=== PATIENT | female | born 1960 | race Caucasian/White ===

== ENCOUNTER 2019-10-09 11:12 | Emergency (ER) | payer BC ==
[2019-10-09] MEDS ORDERED: TETANUS,DIPHTHERIA,PERTUSSIS 1 EA SYG IM ONE (11:27)
--- NOTE | 2019-10-09 11:30 | ED.PDOC ---
History of Present Illness - General Chief Complaint: Laceration Stated Complaint: puncture wound Time Seen by Provider: 10/09/19 11:27 Source: patient, RN notes reviewed, Vital Signs reviewed Exam Limitations: no limitations - History of Present Illness Initial Comments: Patient is a 59-year-old white female who presents with complaints of left wrist bleeding. She apparently hit her medial left wrist on a nail when she was out mowing and it bled. She immediately wrapped it and came in here. On evaluation patient's wrist has a small puncture wound and no other surrounding irritation or bleeding. Patient denies any pain at this time. Patient's tetanus is not up-to-date. Patient denies any other symptoms. Occurred: just prior to arrival Severity: mild Pain Location: upper extremity - Left medial wrist Method of Injury: direct blow Improving Factors: nothing Worsening Factors: nothing Associated Symptoms (Fall): denies symptoms Allergies/Adverse Reactions: Allergies Aspirin Allergy (Verified 10/09/19 11:26) Troleandomycin [From Justin] Allergy (Verified 10/09/19 11:26) Home Medications: Ambulatory Orders Citalopram Hydrobromide [CeleXA] 20 mg PO BEDTIME 10/09/19 Review of Systems - Review of Systems Constitutional: States: no symptoms reported EENTM: States: no symptoms reported Respiratory: States: no symptoms reported Cardiology: States: no symptoms reported Gastrointestinal/Abdominal: States: no symptoms reported Genitourinary: States: no symptoms reported Musculoskeletal: States: no symptoms reported Skin: States: other - Puncture wound left medial wrist Neurological: States: no symptoms reported Endocrine: States: no symptoms reported Hematologic/Lymphatic: States: no symptoms reported All other Systems: Reviewed and Negative Past Medical History (General) - Patient Medical History Hx Stroke: No Hx Congestive Heart Failure: No Hx Diabetes: No Surgical History: Hysterectomy - Vaccination History Hx Tetanus, Diphtheria Vaccination: - unknown Hx Influenza Vaccination: Yes - Social History Hx Tobacco Use: Yes Family Medical History - Family History Mother Family History: Unknown Living Status: Unknown Physical Exam - Physical Exam General Appearance: Alert, Comfortable, Well Developed, Well Groomed, Well Hydrated, Well Nourished Head Injury: no evidence of injury Eye Exam: bilateral normal Neck Exam: full range of motion, normal alignment, normal inspection Extremity Exam: normal range of motion, other - Small puncture wound on the left medial wrist. Minimal tenderness to palpation. No bleeding at this time. No sign of infection or foreign body. Wound was washed out by nursing. 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 10/09/19 11:30 Patient's wound is not bleeding. She is not up-to-date on her tetanus shot and therefore she has decided to stay for a tetanus booster. Boostrix ordered for patient. She tolerated the vaccination without incident. Suraj Lawton M.D. #[id number] Departure - Departure Clinical Impression: Tetanus toxoid vaccination status unknown Puncture wound of wrist without foreign body Qualifiers: Encounter type: initial encounter Laterality: left Qualified Code(s): S61.532A - Puncture wound without foreign body of left wrist, initial encounter Time of Disposition: 11:32 Disposition: Discharge to Home or Self Care Condition: Excellent Departure Forms: ED Discharge - Pt. Copy, Patient Portal Self Enrollment Instructions: Wound Care (DC) Diet: resume usual diet Activity: increase activity as tolerated Referrals: Sky Davalos MD [Primary Care Provider] - 1-5 Days Home Medications: Ambulatory Orders Citalopram Hydrobromide [CeleXA] 20 mg PO BEDTIME 10/09/19
[2019-10-09 11:46] VITALS: BP 117/69; TEMP 97.8; O2SAT 96
[2019-10-09] MEDS ORDERED: MUPIROCIN 2 % OINT 22 GM TUBE TOP SCH (12:00)
== END 2019-10-09 11:44 | disposition home or self-care (01) ==
LOC: ER 11:12
DX: S61.532A Puncture wound without foreign body of left wrist, initial encounter (principal); W45.8XXA Other foreign body or object entering through skin, initial encounter; Y93.H2 Activity, gardening and landscaping; Y92.89 Other specified places as the place of occurrence of the external cause; Z87.891 Personal history of nicotine dependence; Z88.6 Allergy status to analgesic agent; Z88.8 Allergy status to other drugs, medicaments and biological substances